=== PATIENT | male | born 1970 | race Caucasian/White ===

== ENCOUNTER 2023-01-30 11:30 | Emergency (ER) | payer OTHER ==
[~2023-01-30] VITALS: Ht 180.3 cm; Wt 77.1 kg
[~2023-01-30 11:30] MED LIST: Fioricet 325 MG1 TAB PO; PRILOSEC20 MG PO; VICODIN; ZOFRAN4 MG PO
[2023-01-30] MEDS ORDERED: TRAMADOL HCL50 MG PO (11:52)
[2023-01-30] MEDS ORDERED: CLINDAMYCIN HC300 MG PO (11:52)
[2023-01-30] MEDS ORDERED: MELOXICAM15 MG PO (12:00)
== END 2023-01-30 12:05 | disposition home or self-care (01) ==
LOC: ED 11:30
DX: K04.7 Periapical abscess without sinus (principal); Z88.0 Allergy status to penicillin; Z88.5 Allergy status to narcotic agent